=== PATIENT | male | born 1990 | race Caucasian/White ===

== ENCOUNTER → 2021-03-09 10:45 | Outpatient (BNVA) | payer OTHER, SELFPAY | PROVIDERS: Family Provider Nurse Practitioner; PCP Nurse Practitioner; Visit Provider Dermatology | DX: Z01.89 Encounter for other specified special examinations (principal) ==

== ENCOUNTER 2022-06-06 09:32 | Emergency (ER) | payer OTHER, SELFPAY ==
[2022-06-06 09:35] VITALS: BP 163/83; PULSE 83; RESP 12; TEMP 36.6; O2SAT 99; BMI 37.6
[2022-06-06] MEDS: labetalol 5 mg/mL SDV 20mL 10 MG IVP (09:35)
--- NOTE | 2022-06-06 09:38 | XRR_ITS ---
PROCEDURE INFORMATION: Exam: XR Chest Exam date and time: 06/06/2022 9:44 AM Age: 31 years old Clinical indication: Pain; Angina pectoris; Additional info: Cp TECHNIQUE: Imaging protocol: Radiologic exam of the chest. Views: 1 view. COMPARISON: No relevant prior studies available. FINDINGS: Lungs: There are normal lung volumes without interstitial or airspace opacities. Pleural spaces: There are no pleural effusions or pneumothorax. Heart/Mediastinum: The heart size is normal. The mediastinal contour is normal. The trachea is in the midline. Bones/joints: No acute abnormalities. Soft tissues: Multiple external densities are seen overlying the chest, limiting assessment. XR/XR chest 1V portable [id number] IMPRESSION: No chest radiographic evidence of acute cardiopulmonary disease.
--- NOTE | 2022-06-06 09:48 | ECG_ITS ---
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 Measurements Intervals [place] Rate: 85 P: 35 CT: 156 QRS: 36 QRSD: 87 T: 48 QT: 325 QTc: 387 Interpretive Statements SINUS RHYTHM No previous ECG available for comparison Electronically Signed On 06-06-2022 18:34:44 CDT by Bryan Danielson M.D. [id number]
[2022-06-06 10:08] LABS: Basophils % 0.6 %; Eosinophils # 0.1 10^3/uL (0.0-0.8); Eosinophils % 1.9 %; Hematocrit 46.5 % (42.0-52.0); Lymphocytes % 13.8 %; Mean Corpuscular HGB Conc 32.3 g/dL (30.0-36.0); Mean Corpuscular Hemoglobin 29.3 pg (28.0-34.0); Mean Corpuscular Volume 90.8 fl (80-94); Mean Platelet Volume 10.8 fL (7.4-10.4); Monocytes # 0.4 10^3/uL (0.2-0.9); Monocytes % 6.2 %; Neutrophils # 5.31 10^3/uL (1.8-7.7); Neutrophils % 77.1 %; Nucleated Red Blood Cells % 0 %; Platelet Count 249 10^3/cmm (130-400); Red Blood Count 5.12 10^6/uL (4.1-5.3); Red Cell Distribution Width 12.4 % (12.1-15.1); White Blood Count 6.9 10^3/uL (4.0-10.0)
[2022-06-06 10:23] LABS: Alanine Aminotransferase 32 U/L (0-41); Albumin Level 4.1 g/dL (3.5-5.2); Alkaline Phosphatase 69 U/L (40-130); Anion Gap 13.6 (5-19); Aspartate Amino Transferase 25 U/L (0-40); Blood Urea Nitrogen 13 mg/dL (6-20); Calcium 9.1 mg/dL (8.5-10.5); Carbon Dioxide 25 mmol/L (22-29); Chloride 103 mmol/L (98-107); Creatinine Clr Calc Pharmacy 143.8678; Globulin 3.3 g/dL (1.3-4.6); Glomerular Filtration Rate 87.7 mL/min (90-130); Glucose 111 mg/dL (65-115); Osmolality Calculated 285 mOsm/kg (285-295); Potassium 4.6 mmol/L (3.5-5.1); Sodium 137 mmol/L (136-145); Total Bilirubin 0.4 mg/dL (0.15-1.2); Total Protein 7.4 g/dL (6.6-8.7)
[2022-06-06 10:24] LABS: Troponin(5th) Baseline 7 ng/L (0-15)
--- NOTE | 2022-06-06 10:24 | W.ED.CHESTPA ---
HPI - Chest Pain General: Chief Complaint: Chest Pain Stated Complaint: CHEST PAIN Time Seen by Provider: 06/06/22 09:34 Source: patient Mode of arrival: ambulatory Limitations: no limitations History of Present Illness: 31-year-old male states he is having some right-sided chest pain last night and continued throughout the day. He states pain is a sharp pain did radiate down to his right arm. 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 Denies any pain or shortness of breath currently. Associated symptoms: Deny abdominal pain, dyspnea, fever(s), nausea or vomiting Review of Systems Const: Denies: fever(s), chills, body aches or change in appetite Eyes: Denies: blurry vision or eye discomfort ENMT: Denies: throat pain or dental pain Card: Reports: chest pain Resp: Denies: dyspnea GI: Denies: abdominal pain, nausea, vomiting or diarrhea : Denies: dysuria Musc: Denies: neck pain or back pain Skin/Breast: Denies: rash Neuro: Denies: headache(s) Psych: Denies: depression Lyle/Lymph: Denies: easy bruising All/Imm: Denies: urticaria PFSH ED PFSH: Medical History Environmental and seasonal allergies Essential hypertension GERD (gastroesophageal reflux disease) Obesity, Class II, BMI 35-39.9 Surgical History No history of previous surgery Family History Other Cancer Diabetes Hypertension Denies family history of Dementia Stroke Social History Smoking and tobacco status: never smoked Second hand smoke exposure: No Smoking risk assessment/counseling performed?: No Alcohol intake: unknown Desire information about alcohol rehabilitation?: No Counseling given: No Desire information about substance/drug rehabilitation?: No Counseling given: No Adopted: No Caregiver/support person: No Lives independently: Yes Household members: none Housing: House Marital status: Single Number of children: 0 service: No Current occupational status: employed Current occupation: [employer] Current gender identity: Male Physical Exam Const: COMMON NORMALS: no acute distress, patient oriented x3 and healthy appearing HENMT: COMMON NORMALS: normocephalic and atraumatic HEAD & SCALP: normocephalic and atraumatic Eye: COMMON NORMALS: Equal, round and reactive pupils present and EOMs intact bilaterally PUPIL: Yes Equal, round and reactive pupils present Neck/C-Spine: COMMON NORMALS: full ROM and supple Chest: COMMONS NORMALS: normal inspection of the chest and normal palpation of entire chest wall Resp: COMMON NORMALS: normal respiratory effort, No retractions, No use of accessory muscles and clear to auscultation bilaterally AUSCULTATION: clear to auscultation bilaterally Cardio: COMMON NORMALS: regular rate, regular rhythm and No murmurs present (Cardio) RATE: regular rate RHYTHM: regular rhythm GI: COMMON NORMALS: Normal to inspection, nondistended, normoactive bowel sounds present, Soft to palpation, non-tender and no masses PALPATION: Yes Soft to palpation Extremity: COMMON NORMALS: normal to inspection and full ROM Neuro: COMMON NORMALS: patient oriented x3, moves all extremities and no focal motor deficits Psych: COMMON NORMALS: mental status grossly normal, Normal thought process present and cooperative THOUGHT PROCESS: Normal thought process present Skin: COMMON NORMALS: no rashes or lesions noted and no wounds GENERAL SKIN EXAM: no rashes or lesions noted Course Vital Signs: Vital signs: Vital Signs Temperature 97.8 F 06/06/22 09:35 Pulse Rate 89 06/06/22 10:28 Respiratory Rate 14 06/06/22 10:28 Blood Pressure 152/89 06/06/22 10:28 Pulse Oximetry 97 06/06/22 10:28 Oxygen Delivery Me thod 06/06/22 10:28 MDM - Chest Pain Medical Decision Making Patient presents here with chest pain has been resolved his initial and repeat troponin here is normal he does have some hypertension we will start him on metoprolol he is to follow-up his PCP this week likely needs an outpatient stress test he is to return if worsening he understands agrees to plan. Lab Data : 06/06/22 09:50 06/06/22 09:50 Radiology Impressions Chest X-Ray 06/06/22 09:38 IMPRESSION: No chest radiographic evidence of acute cardiopulmonary disease. Laboratory Results WBC 6.9 10^3/uL (4.0-10.0) 06/06/22 09:50 RBC 5.12 10^6/uL (4.1-5.3) 06/06/22 09:50 Hgb 15.0 g/dL (11.7-16.6) 06/06/22 09:50 Hct 46.5 % (42.0-52.0) 06/06/22 09:50 MCV 90.8 fl (80-94) 06/06/22 09:50 MCH 29.3 pg (28.0-34.0) 06/06/22 09:50 MCHC 32.3 g/dL (30.0-36.0) 06/06/22 09:50 RDW 12.4 % (12.1-15.1) 06/06/22 09:50 Plt Count 249 10^3/cmm (130-400) 06/06/22 09:50 MPV 10.8 fL (7.4-10.4) H 06/06/22 09:50 Neut % (Auto) 77.1 % 06/06/22 09:50 Lymph % (Auto) 13.8 % 06/06/22 09:50 [place] % (Auto) 6.2 % 06/06/22 09:50 Eos % (Auto) 1.9 % 06/06/22 09:50 Baso % (Auto) 0.6 % 06/06/22 09:50 Neut # (Auto) 5.31 10^3/uL (1.8-7.7) 06/06/22 09:50 Lymph # (Auto) 1.0 10^3/uL (0.8-4.8) 06/06/22 09:50 [place] # (Auto) 0.4 10^3/uL (0.2-0.9) 06/06/22 09:50 Eos # (Auto) 0.1 10^3/uL (0.0-0.8) 06/06/22 09:50 Baso # (Auto) 0.0 10^3/uL (0.0-0.1) 06/06/22 09:50 Nucleated RBC % (auto) 0 % 06/06/22 09:50 Nucleated RBCs # 0.0 /100WBC 06/06/22 09:50 Sodium 137 mmol/L (136-145) 06/06/22 09:50 Potassium 4.6 mmol/L (3.5-5.1) 06/06/22 09:50 Chloride 103 mmol/L (98-107) 06/06/22 09:50 Carbon Dioxide 25 mmol/L (22-29) 06/06/22 09:50 Anion Gap 13.6 (5-19) 06/06/22 09:50 BUN 13 mg/dL (6-20) 06/06/22 09:50 Creatinine 1.0 mg/dL (0.7-1.2) 06/06/22 09:50 GFR Calculation 87.7 mL/min (90-130) L 06/06/22 09:50 Glucose 111 mg/dL (65-115) 06/06/22 09:50 Calculated Osmolality 285 mOsm/kg (285-295) 06/06/22 09:50 Calcium 9.1 mg/dL (8.5-10.5) 06/06/22 09:50 Total Bilirubin 0.4 mg/dL (0.15-1.2) 06/06/22 09:50 AST 25 U/L (0-40) 06/06/22 09:50 ALT 32 U/L (0-41) 06/06/22 09:50 Alkaline Phosphatase 69 U/L (40-130) 06/06/22 09:50 Troponin T Baseline 7 ng/L (0-15) 06/06/22 09:50 Troponin T 120 Minute 6.00 ng/L (0-15) 06/06/22 11:20 Total Protein 7.4 g/dL (6.6-8.7) 06/06/22 09:50 Albumin 4.1 g/dL (3.5-5.2) 06/06/22 09:50 Globulin 3.3 g/dL (1.3-4.6) 06/06/22 09:50 EKG Data EKG 1: I personally reviewed and interpreted this EKG as follows: EKG interpretation date: 06/06/22 EKG interpretation time: 09:48 Interpretation: nsr hr [address] or t wave abnormalities qrs 87 qtc 367 Discharge Plan Discharge Patient Disposition: Home Clinical Impression: Chest pain, Hypertension Condition: Stable Prescriptions: New metoprolol succinate 50 mg tablet extended release 24 hr 50 mg PO DAILY Qty: 30 0RF No Action (DME) nebulizers Misc See Rx Instructions .ROUTE .MEDSUPPLY Qty: 1 0RF Rx Instructions: As directed albuterol sulfate 2.5 mg /3 mL (0.083 %) solution for nebulization 2.5 mg inhalation Q4H PRN (Reason: shortness of breath or wheezing) Qty: 75 2RF aspirin 325 mg Tablet 325 mg PO .ONCE Claritin 10 mg Tablet 10 mg PO BEDTIME Discharge Orders: Discharge ED (Routine); Ordered 06/06/22 Ordered By: Laquita Benton Referrals: Cristobal Shanks, [employer] [Primary Care Provider] - Discharge Diet: Advance as tolerated Discharge Activity: Resume usual activity Patient Instructions: Chest Pain (ED) Coding Level of Care Code ED [employer] for [facility] Exam Comprehensive
[2022-06-06 10:28] VITALS: BP 152/89; PULSE 89; RESP 14; O2SAT 97
--- NOTE | 2022-06-06 10:30 | PC.PHAR ---
pt states he hasnt taken losartan 25mg daily for a year and a half-
--- NOTE | 2022-06-06 11:38 | ECG_ITS ---
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 Measurements Intervals [place] Rate: 87 P: 27 CO: 152 QRS: 17 QRSD: 90 T: 47 QT: 331 QTc: 400 Interpretive Statements SINUS RHYTHM Compared to ECG 06/06/2022 09:48:07 No significant changes Electronically Signed On 06-06-2022 18:35:07 CDT by Bryan Danielson M.D. [id number]
[2022-06-06 12:12] VITALS: BP 123/81; PULSE 90; RESP 19; O2SAT 97
== END 2022-06-06 12:14 | disposition home or self-care (01) ==
PROVIDERS: Emergency Provider Emergency Medicine; PCP Nurse Practitioner
DX: R07.9 Chest pain, unspecified (principal); I10 Essential (primary) hypertension
CPT/HCPCS: 71045; 80053; 84484; 85025; 93005; 96374; 99285; J3490

== ENCOUNTER → 2022-11-29 09:12 | Outpatient (BNVA) | payer OTHER, SELFPAY | PROVIDERS: PCP Nurse Practitioner; Visit Provider Dermatology | DX: Z01.89 Encounter for other specified special examinations (principal) ==

== ENCOUNTER → 2023-03-08 09:05 | Outpatient (BNVA) | payer OTHER, SELFPAY | PROVIDERS: PCP Nurse Practitioner; Visit Provider Nurse Practitioner | DX: B35.4 Tinea corporis (principal); E88.81 Metabolic syndrome and other insulin resistance; I10 Essential (primary) hypertension; R23.8 Other skin changes; E66.9 Obesity, unspecified | CPT/HCPCS: 80053 ==

== ENCOUNTER → 2023-05-30 10:08 | Outpatient (BNVA) | payer OTHER, SELFPAY | PROVIDERS: PCP Nurse Practitioner; Visit Provider Dermatology | DX: Z01.89 Encounter for other specified special examinations (principal) ==

== ENCOUNTER → 2023-07-26 09:28 | Outpatient (BNVA) | payer OTHER, SELFPAY | PROVIDERS: PCP Nurse Practitioner; Visit Provider Nurse Practitioner Family | DX: M25.532 Pain in left wrist (principal); R60.0 Localized edema; S52.502A Unspecified fracture of the lower end of left radius, initial encounter for closed fracture; S52.612A Displaced fracture of left ulna styloid process, initial encounter for closed fracture; X58.XXXA Exposure to other specified factors, initial encounter | CPT/HCPCS: 73110 ==

== ENCOUNTER → 2023-07-31 09:37 | Outpatient (BNVA) | payer OTHER, SELFPAY | PROVIDERS: PCP Nurse Practitioner; Referring Provider Nurse Practitioner Family; Visit Provider Nurse Practitioner | DX: S52.502A Unspecified fracture of the lower end of left radius, initial encounter for closed fracture (principal); S52.602A Unspecified fracture of lower end of left ulna, initial encounter for closed fracture; W11.XXXA Fall on and from ladder, initial encounter; Y99.0 Civilian activity done for income or pay | CPT/HCPCS: 73100 ==

== ENCOUNTER 2023-07-31 11:46 | Outpatient (CLI) | payer OTHER, SELFPAY | END 2023-07-31 11:47 | disposition home or self-care (01) | LOC: SPT 11:50 | PROVIDERS: PCP Nurse Practitioner; Visit Provider Nurse Practitioner | DX: Z46.89 Encounter for fitting and adjustment of other specified devices (principal); S52.509D Unspecified fracture of the lower end of unspecified radius, subsequent encounter for closed fracture with routine healing; S52.609D Unspecified fracture of lower end of unspecified ulna, subsequent encounter for closed fracture with routine healing; X58.XXXD Exposure to other specified factors, subsequent encounter | CPT/HCPCS: 97760; L3982 ==

== ENCOUNTER → 2023-08-30 09:30 | Outpatient (BNVA) | payer OTHER, SELFPAY | PROVIDERS: PCP Nurse Practitioner; Visit Provider Nurse Practitioner | DX: S52.502A Unspecified fracture of the lower end of left radius, initial encounter for closed fracture; S52.602A Unspecified fracture of lower end of left ulna, initial encounter for closed fracture; X58.XXXA Exposure to other specified factors, initial encounter; Y99.0 Civilian activity done for income or pay | CPT/HCPCS: 73110 ==

== ENCOUNTER → 2023-09-27 10:35 | Outpatient (BNVA) | payer OTHER, SELFPAY | PROVIDERS: PCP Nurse Practitioner; Visit Provider Specialist | DX: Y99.0 Civilian activity done for income or pay; S52.502D Unspecified fracture of the lower end of left radius, subsequent encounter for closed fracture with routine healing; S52.602D Unspecified fracture of lower end of left ulna, subsequent encounter for closed fracture with routine healing; X58.XXXD Exposure to other specified factors, subsequent encounter | CPT/HCPCS: 73110 ==

== ENCOUNTER → 2023-11-06 10:04 | Outpatient (BNVA) | payer OTHER, SELFPAY | PROVIDERS: PCP Nurse Practitioner; Visit Provider Nurse Practitioner | DX: Z13.6 Encounter for screening for cardiovascular disorders (principal); I10 Essential (primary) hypertension | CPT/HCPCS: 80053; 80061; 82947; 83036 ==

== ENCOUNTER 2024-12-10 07:23 | Outpatient (CLI) | payer BC, SELFPAY ==
--- NOTE | 2024-12-10 07:45 | US_ITS ---
WS: [id number] RIGHT UPPER QUADRANT ULTRASOUND HISTORY: R74.01 - Elevation of levels of liver transaminase levels COMPARISON: None available. Liver: 15.4 cm in length. Coarse echotexture. No intrahepatic dilatation. No mass identified. Portal Vein: Normal hepatopetal flow with monophasic waveform. Gallbladder: Normally distended gallbladder with cholelithiasis. No evidence for acute cholecystitis. CBD: 0.3 cm Pancreas: Poorly visualized due to body habitus. Right kidney: 11.3 cm in length. Normal size and echogenicity. No hydronephrosis or mass. Aorta and IVC: Unremarkable abdominal aorta and IVC. No ascites. US/US liver [id number] IMPRESSION: 1. Study limited by body habitus. 2. Cholelithiasis without acute cholecystitis. 3. Mild hepatic steatosis.
== END 2024-12-10 07:24 | disposition home or self-care (01) ==
PROVIDERS: PCP Nurse Practitioner; Visit Provider Nurse Practitioner
DX: R74.01 Elevation of levels of liver transaminase levels (principal); K80.20 Calculus of gallbladder without cholecystitis without obstruction; K76.0 Fatty (change of) liver, not elsewhere classified
CPT/HCPCS: 76705

== ENCOUNTER → 2025-01-14 08:39 | Outpatient (BNVA) | payer BC, SELFPAY | PROVIDERS: PCP Nurse Practitioner; Visit Provider Nurse Practitioner | DX: R19.7 Diarrhea, unspecified (principal) | CPT/HCPCS: 87045; 87427; 87449 ==